=== PATIENT | male | born 1965 | race Caucasian/White ===

== ENCOUNTER 2018-08-19 14:46 | Emergency (ER) | payer OTHER ==
[~2018-08-19] VITALS: Ht 175.3 cm; Wt 104.3 kg
[~2018-08-19 14:46] MED LIST: BUTALB-APAP-CA1 EACH PO; EXCEDRIN CAPLE1 EACH; FLEXERIL PO; HYDROCHLOROTH12.5 MG; HYDROCHLOROTHIA25 M2 PO; IBUPROFEN 800800 M1 PO; LISINOPRIL10 MG PO; LISINOPRIL40 MG; NORCO 5-325 TA1 EAC1 PO; NORCO 5-325 TA1 EACH PO; OMEPRAZOLE40 MG; OXCARBAZEPINE300 M1 PO; PAXIL10 MG PO; PREDNISONE 20 M20 M1 PO; PRILOSEC20 MG; PROZAC PO; SEROQUEL XR150 M1; ULTRAM 50MG TAB50 MG PO; VENTOLIN HFA INH8 GM IH; WELLBUTRIN PO; XANAX 0.5 MG0.5 MG; ZOLOFT100 MG
[2018-08-19 15:16] VITALS: BP 140/90
== END 2018-08-19 15:21 | disposition home or self-care (01) ==
LOC: M.ERS 14:46
DX: S51.812D Laceration without foreign body of left forearm, subsequent encounter (principal); X58.XXXD Exposure to other specified factors, subsequent encounter; I10 Essential (primary) hypertension; E11.9 Type 2 diabetes mellitus without complications; F32.9 Major depressive disorder, single episode, unspecified; F17.200 Nicotine dependence, unspecified, uncomplicated

== ENCOUNTER 2018-08-28 06:45 | Emergency (ER) | payer OTHER ==
[~2018-08-28] VITALS: Ht 182.9 cm; Wt 110.2 kg
[2018-08-28] MEDS ORDERED: NORCO 5-325 TA1 EAC1 PO (08:13)
[2018-08-28] MEDS ORDERED: DOXYCYCLINE 10100 MG PO (08:13)
[2018-08-28 08:28] VITALS: BP 132/82
== END 2018-08-28 08:29 | disposition home or self-care (01) ==
LOC: M.ERS 06:45
DX: L03.113 Cellulitis of right upper limb (principal); I10 Essential (primary) hypertension; F32.9 Major depressive disorder, single episode, unspecified; E11.9 Type 2 diabetes mellitus without complications